=== PATIENT | female | born 1950 | race Caucasian/White ===

== ENCOUNTER 2019-09-11 12:37 | Inpatient (IN) | payer MEDICAID ==
[~2019-09-11] VITALS: Ht 149.9 cm; Wt 76.8 kg
[2019-09-11] MEDS ORDERED: ERGOCALCIFER50000 IU PO (13:00)
[2019-09-11] MEDS ORDERED: LEVOTHYROXIN0.075 MG PO (13:00)
[2019-09-11 13:05] LABS: EOS % 0.5 % (1.0-5.0); HEMATOCRIT 30.1 % (37.0-47.0); HEMOGLOBIN 9.4 g/dL (12.5-16.0); MEAN CELL VOLUME 97 fl (78-100); MEAN CORPUSCULAR HEMOGLOBIN 30 pg (27-31); MEAN CORPUSCULAR HGB CONC 31 g/dL (33-37); MONO # 0.4 (0.20-0.80); NEU # 2.9 (1.40-6.50); PLATELET COUNT 160 K/mm3 (130-400); RED BLOOD COUNT 3.12 M/mm3 (4.10-5.30); RED CELL DISTRIBUTION WIDTH 14.3 % (11.5-14.5)
[2019-09-11 13:06] LABS: LYMPH# 0.6 (1.50-4.00)
[2019-09-11] MEDS ORDERED: GLUCOPHAGE PO (13:07)
[2019-09-11] MEDS ORDERED: ASPIRIN ADULT L81 M3 PO (13:08)
[2019-09-11] MEDS ORDERED: ALENDRONATE SOD70 MG PO (13:08)
[2019-09-11] MEDS ORDERED: ATORVASTATIN CA40 MG PO (13:08)
[2019-09-11] MEDS ORDERED: PIOGLITAZONE HY45 MG PO (13:08)
[2019-09-11] MEDS ORDERED: CALCIUM CITRAT1 EAC9 PO (13:09)
[2019-09-11] MEDS ORDERED: REFRESH TEARS15 ML OP (13:09)
[2019-09-11] MEDS ORDERED: SENTRY SENIOR1 EAC1 PO (13:09)
[2019-09-11 13:17] LABS: ALBUMIN 4.1 g/dL (3.4-4.8); POTASSIUM 3.8 mmol/L (3.5-5.1)
[2019-09-11 13:18] LABS: CALCIUM 9.7 mg/dL (8.3-10.5)
[2019-09-11 13:19] LABS: TOTAL PROTEIN 7.1 g/dL (6.2-8.1)
[2019-09-11 13:21] LABS: TOTAL BILIRUBIN 1.1 mg/dL (0.2-1.2)
[2019-09-11 13:38] LABS: URINE APPEARANCE HAZY; URINE BILIRUBIN NEGATIVE (NEGATIVE); URINE BLOOD TRACE (NEGATIVE); URINE COLOR YELLOW; URINE GLUCOSE NEGATIVE (NEGATIVE); URINE KETONE NEGATIVE (NEGATIVE); URINE NITRATE NEGATIVE (NEGATIVE); URINE PROTEIN(semi-quant) 2+ mg/dL (NEGATIVE); URINE UROBILINOGEN NORMAL (NORMAL)
[2019-09-11 13:39] LABS: URINE LEUKOCYTE ESTERASE 1+ (NEGATIVE); URINE MUCUS PRESENT (NOT PRESENT)
[2019-09-11 16:00] VITALS: BP 108/57
[2019-09-11 16:35] VITALS: BP 108/57
[2019-09-11 18:50] VITALS: BP 108/57
[2019-09-11 23:12] VITALS: BP 135/70
[2019-09-12 02:57] VITALS: BP 129/50
[2019-09-12 05:55] LABS: EOS # 0.1 (0.04-0.40); EOS % 1.7 % (1.0-5.0); HEMATOCRIT 27.2 % (37.0-47.0); HEMOGLOBIN 8.4 g/dL (12.5-16.0); MEAN CELL VOLUME 96 fl (78-100); MEAN CORPUSCULAR HEMOGLOBIN 30 pg (27-31); MEAN CORPUSCULAR HGB CONC 31 g/dL (33-37); MEAN PLATELET VOLUME 10.2 fl (7.4-10.4); MONO # 0.4 (0.20-0.80); NEU # 2.4 (1.40-6.50); PLATELET COUNT 131 K/mm3 (130-400); RED BLOOD COUNT 2.83 M/mm3 (4.10-5.30); RED CELL DISTRIBUTION WIDTH 14.1 % (11.5-14.5); WHITE BLOOD COUNT 3.6 K/mm3 (4.8-10.8)
[2019-09-12 06:09] LABS: ALBUMIN 3.5 g/dL (3.4-4.8); POTASSIUM 3.6 mmol/L (3.5-5.1)
[2019-09-12 06:11] LABS: TOTAL PROTEIN 5.9 g/dL (6.2-8.1)
[2019-09-12 06:13] LABS: TOTAL BILIRUBIN 0.6 mg/dL (0.2-1.2)
[2019-09-12 06:20] VITALS: BP 119/56
[2019-09-12 06:25] LABS: LYMPH# 0.6 (1.50-4.00)
[2019-09-12 10:58] VITALS: BP 126/67
[2019-09-12 15:18] VITALS: BP 120/55
[2019-09-12 18:00] VITALS: BP 136/76
[2019-09-12 19:09] LABS: HEMATOCRIT 28.1 % (37.0-47.0); HEMOGLOBIN 8.8 g/dL (12.5-16.0); MEAN CELL VOLUME 95 fl (78-100); MEAN CORPUSCULAR HEMOGLOBIN 30 pg (27-31); MEAN CORPUSCULAR HGB CONC 31 g/dL (33-37); MEAN PLATELET VOLUME 10.4 fl (7.4-10.4); PLATELET COUNT 165 K/mm3 (130-400); RED BLOOD COUNT 2.96 M/mm3 (4.10-5.30); RED CELL DISTRIBUTION WIDTH 13.9 % (11.5-14.5); WHITE BLOOD COUNT 3.2 K/mm3 (4.8-10.8)
[2019-09-12 19:43] LABS: LYMPHOCYTE 23 % (20-51); MONOCYTE 11 % (3-10); NEUTROPHILS 66 % (42-75)
[2019-09-12 19:44] LABS: HYPOCHROMIA 2+
[2019-09-12 23:09] VITALS: BP 131/66
[2019-09-13] VITALS (7 sets, daily range): BP systolic 93–143; BP diastolic 50–76
[2019-09-13 06:35] LABS: EOS # 0.1 (0.04-0.40); EOS % 3.8 % (1.0-5.0); HEMATOCRIT 27.9 % (37.0-47.0); HEMOGLOBIN 8.6 g/dL (12.5-16.0); LYMPH# 0.8 (1.50-4.00); MEAN CELL VOLUME 95 fl (78-100); MEAN CORPUSCULAR HEMOGLOBIN 29 pg (27-31); MEAN CORPUSCULAR HGB CONC 31 g/dL (33-37); MEAN PLATELET VOLUME 10.1 fl (7.4-10.4); MONO # 0.4 (0.20-0.80); NEU # 1.8 (1.40-6.50); PLATELET COUNT 142 K/mm3 (130-400); RED BLOOD COUNT 2.94 M/mm3 (4.10-5.30); RED CELL DISTRIBUTION WIDTH 13.8 % (11.5-14.5); WHITE BLOOD COUNT 3.1 K/mm3 (4.8-10.8)
[2019-09-13 07:02] LABS: CALCIUM 8.4 mg/dL (8.3-10.5); POTASSIUM 3.3 mmol/L (3.5-5.1)
[2019-09-14] VITALS (7 sets, daily range): BP systolic 80–153; BP diastolic 50–67
[2019-09-14 06:18] LABS: EOS # 0.1 (0.04-0.40); EOS % 2.8 % (1.0-5.0); HEMATOCRIT 30.4 % (37.0-47.0); HEMOGLOBIN 9.5 g/dL (12.5-16.0); MEAN CELL VOLUME 95 fl (78-100); MEAN CORPUSCULAR HEMOGLOBIN 30 pg (27-31); MEAN CORPUSCULAR HGB CONC 31 g/dL (33-37); MEAN PLATELET VOLUME 10.4 fl (7.4-10.4); MONO # 0.4 (0.20-0.80); NEU # 1.7 (1.40-6.50); PLATELET COUNT 177 K/mm3 (130-400); RED BLOOD COUNT 3.19 M/mm3 (4.10-5.30); RED CELL DISTRIBUTION WIDTH 13.9 % (11.5-14.5); WHITE BLOOD COUNT 3.2 K/mm3 (4.8-10.8)
[2019-09-14 06:20] LABS: POTASSIUM 3.4 mmol/L (3.5-5.1)
[2019-09-14 06:21] LABS: CALCIUM 8.7 mg/dL (8.3-10.5)
[2019-09-15 03:04] VITALS: BP 105/65
[2019-09-15 06:23] VITALS: BP 137/71
[2019-09-15 07:20] VITALS: BP 138/76
[2019-09-15] MEDS ORDERED: METOPROLOL SUCC25 M1 PO (09:13)
[2019-09-15] MEDS ORDERED: LOSARTAN POTASS25 MG PO (09:13)
[2019-09-15] MEDS ORDERED: POTASSIUM CHLO20 ME3 PO (09:14)
[2019-09-15] MEDS ORDERED: LASIX20 M1 PO (09:15)
[2019-09-15] MEDS ORDERED: GLUCOPHAGE PO (09:15)
== END 2019-09-15 10:38 | disposition home or self-care (01) | DRG 291 ==
LOC: ED 12:37 → MED/SURG 16:23
PROVIDERS: Internal Medicine; Physician Assistant; ADMIT Nurse Practitioner Primary Care
DX: I50.21 Acute systolic (congestive) heart failure (principal); J18.9 Pneumonia, unspecified organism; N39.0 Urinary tract infection, site not specified; K92.2 Gastrointestinal hemorrhage, unspecified; Q90.9 Down syndrome, unspecified; E87.6 Hypokalemia; E11.9 Type 2 diabetes mellitus without complications; D50.0 Iron deficiency anemia secondary to blood loss (chronic)
CPT/HCPCS: A4216; C9113; J0696; J1650; J1815; J1885; J1940

== ENCOUNTER → 2019-09-15 | Outpatient (CLI) | payer MEDICAID ==
[~2019-09-15] MED LIST: ALENDRONATE SOD70 MG PO; ASPIRIN ADULT L81 M3 PO; ATORVASTATIN CA40 MG PO; CALCIUM CITRAT1 EAC9 PO; ERGOCALCIFER50000 IU PO; GLUCOPHAGE PO; LASIX20 M1 PO; LEVOTHYROXIN0.075 MG PO; LOSARTAN POTASS25 MG PO; METOPROLOL SUCC25 M1 PO; PIOGLITAZONE HY45 MG PO; POTASSIUM CHLO20 ME3 PO; REFRESH TEARS15 ML OP; SENTRY SENIOR1 EAC1 PO
[2019-09-15 07:20] VITALS: BP 138/76
== END ==
LOC: CARDLAB 10:17 → CARDREHAB 10:50 → CARDLAB 12:19
DX: I50.20 Unspecified systolic (congestive) heart failure (principal); I42.0 Dilated cardiomyopathy
CPT/HCPCS: A9500

== ENCOUNTER → 2021-12-19 | Outpatient (CLI) | payer MEDICAID ==
[2021-12-19 16:42] LABS: URINE APPEARANCE CLEAR; URINE BILIRUBIN NEGATIVE (NEGATIVE); URINE BLOOD NEGATIVE (NEGATIVE); URINE COLOR YELLOW; URINE GLUCOSE NEGATIVE (NEGATIVE); URINE KETONE NEGATIVE (NEGATIVE); URINE LEUKOCYTE ESTERASE 1+ (NEGATIVE); URINE NITRATE NEGATIVE (NEGATIVE); URINE PROTEIN(semi-quant) TRACE (NEGATIVE); URINE UROBILINOGEN NORMAL (NORMAL)
[2021-12-19 16:43] LABS: URINE MUCUS PRESENT (NOT PRESENT)
== END ==
LOC: LAB 16:02
PROVIDERS: Internal Medicine
DX: E11.9 Type 2 diabetes mellitus without complications (principal)

== ENCOUNTER → 2022-12-21 | Outpatient (CLI) | payer MEDICAID ==
[2022-12-21 12:11] LABS: BASO # 0.01 K/mm3 (0.02-0.10); EOS # 0.03 K/mm3 (0.04-0.40); EOS % 0.5 % (1.0-5.0); HEMATOCRIT 34.7 % (37.0-47.0); HEMOGLOBIN 11.2 g/dL (12.5-16.0); LYMPH# 1.02 K/mm3 (1.50-4.00); MEAN CELL VOLUME 93 fl (78-100); MEAN CORPUSCULAR HEMOGLOBIN 30 pg (27-31); MEAN CORPUSCULAR HGB CONC 32 g/dL (33-37); MEAN PLATELET VOLUME 10.1 fl (7.4-10.4); MONO # 0.41 K/mm3 (0.20-0.80); NEU # 4.64 K/mm3 (1.40-6.50); PLATELET COUNT 172 K/mm3 (130-400); RED BLOOD COUNT 3.74 M/mm3 (4.10-5.30); RED CELL DISTRIBUTION WIDTH 12.7 % (11.5-14.5); WHITE BLOOD COUNT 6.1 K/mm3 (4.8-10.8)
[2022-12-21 12:20] LABS: POTASSIUM 4.8 mmol/L (3.5-5.1)
[2022-12-21 12:21] LABS: ALBUMIN 4.5 g/dL (3.4-4.8)
[2022-12-21 12:22] LABS: CALCIUM 10.5 mg/dL (8.3-10.5)
[2022-12-21 12:23] LABS: TOTAL PROTEIN 7.5 g/dL (6.2-8.1)
[2022-12-21 12:25] LABS: TOTAL BILIRUBIN 0.3 mg/dL (0.2-1.2)
[2022-12-21 12:30] LABS: MAGNESIUM 1.42 mg/dL (1.60-2.60)
[2022-12-21 12:40] LABS: URINE APPEARANCE CLEAR; URINE COLOR YELLOW
[2022-12-21 12:41] LABS: URINE BILIRUBIN NEGATIVE (NEGATIVE); URINE BLOOD NEGATIVE (NEGATIVE); URINE GLUCOSE NEGATIVE (NEGATIVE); URINE KETONE NEGATIVE (NEGATIVE); URINE LEUKOCYTE ESTERASE 1+ (NEGATIVE); URINE MUCUS PRESENT (NOT PRESENT); URINE NITRATE NEGATIVE (NEGATIVE); URINE PROTEIN(semi-quant) TRACE (NEGATIVE); URINE UROBILINOGEN NORMAL (NORMAL)
[2022-12-21 13:49] LABS: ERYTHROCYTE SEDIMENTATION RATE 52 mm/hr (0-30)
== END ==
LOC: LAB 10:51
PROVIDERS: Internal Medicine
DX: I11.0 Hypertensive heart disease with heart failure (principal); I25.10 Atherosclerotic heart disease of native coronary artery without angina pectoris; M81.0 Age-related osteoporosis without current pathological fracture; Z12.39 Encounter for other screening for malignant neoplasm of breast; D61.818 Other pancytopenia; E11.9 Type 2 diabetes mellitus without complications; K90.9 Intestinal malabsorption, unspecified

== ENCOUNTER → 2024-02-21 | Outpatient (CLI) | payer MEDICAID ==
[2024-02-21 10:55] LABS: BASO # 0.01 K/mm3 (0.02-0.10); EOS # 0.04 K/mm3 (0.04-0.40); EOS % 0.7 % (1.0-5.0); HEMATOCRIT 32.6 % (37.0-47.0); HEMOGLOBIN 10.6 g/dL (12.5-16.0); LYMPH# 1.12 K/mm3 (1.50-4.00); MEAN CELL VOLUME 92 fl (78-100); MEAN CORPUSCULAR HEMOGLOBIN 30 pg (27-31); MEAN CORPUSCULAR HGB CONC 33 g/dL (33-37); MEAN PLATELET VOLUME 9.8 fl (7.4-10.4); MONO # 0.42 K/mm3 (0.20-0.80); NEU # 3.99 K/mm3 (1.40-6.50); PLATELET COUNT 155 K/mm3 (130-400); RED BLOOD COUNT 3.56 M/mm3 (4.10-5.30); RED CELL DISTRIBUTION WIDTH 12.6 % (11.5-14.5); WHITE BLOOD COUNT 5.6 K/mm3 (4.8-10.8)
[2024-02-21 11:01] LABS: ALBUMIN 4.2 g/dL (3.4-4.8)
[2024-02-21 11:02] LABS: CALCIUM 10.3 mg/dL (8.3-10.5)
[2024-02-21 11:04] LABS: TOTAL PROTEIN 7.1 g/dL (6.2-8.1)
[2024-02-21 11:06] LABS: TOTAL BILIRUBIN 0.3 mg/dL (0.2-1.2)
[2024-02-21 11:11] LABS: MAGNESIUM 1.55 mg/dL (1.60-2.60)
[2024-02-21 23:21] LABS: HEPATITIS C VIRUS ANTIBODY Negative (Negative)
== END ==
LOC: LAB 10:41
PROVIDERS: Internal Medicine
DX: Z11.59 Encounter for screening for other viral diseases (principal); K90.9 Intestinal malabsorption, unspecified; E03.4 Atrophy of thyroid (acquired); I10 Essential (primary) hypertension; E78.2 Mixed hyperlipidemia; E11.9 Type 2 diabetes mellitus without complications

== ENCOUNTER → 2024-05-02 | Outpatient (CLI) | payer MEDICAID | LOC: RAD 12:15 | DX: M17.0 Bilateral primary osteoarthritis of knee (principal) ==